=== PATIENT | female | born 1965 | race African-American/Black ===

== ENCOUNTER → 2017-02-01 | Outpatient (CLI) | payer OTHER ==
[~2017-02-01] MED LIST: ACETAMINOPHEN325 M1 PO; AMBIEN 5 MG TABL5 M1 PO; IBUPROFEN 600600 M1 PO; IMITREX 50 MG T50 MG PO; PROVENTIL HFA6.7 G1 INH; SIMETHICON CHEW80 MG PO; SINGULAIR 10 MG10 M1 PO; TOPIRAGEN200 MG PO; ULTRAM 50MG TAB50 MG PO; ZYRTEC 10 MG TA10 MG PO
== END ==
LOC: ULTRA 10:13
DX: N63 Unspecified lump in breast (principal)

== ENCOUNTER → 2017-07-25 | Outpatient (CLI) | payer OTHER | LOC: RAD 11:42 | DX: Z12.31 Encounter for screening mammogram for malignant neoplasm of breast (principal) ==

== ENCOUNTER → 2019-08-10 | Outpatient (CLI) | payer OTHER | LOC: RAD 12:12 | DX: Z12.31 Encounter for screening mammogram for malignant neoplasm of breast (principal) ==

== ENCOUNTER → 2019-09-28 | Outpatient (CLI) | payer OTHER | LOC: RAD 14:49 | DX: M41.86 Other forms of scoliosis, lumbar region (principal); I10 Essential (primary) hypertension; G43.909 Migraine, unspecified, not intractable, without status migrainosus; E55.9 Vitamin D deficiency, unspecified; Z98.890 Other specified postprocedural states ==

== ENCOUNTER 2020-03-05 11:44 | Emergency (ER) | payer OTHER ==
[~2020-03-05] VITALS: Ht 162.6 cm; Wt 85.3 kg
[2020-03-05 12:23] LABS: BASOPHILS 0.2 % (0.0-2.0); EOSINOPHILS 0.3 % (0.0-3.0); HEMATOCRIT 35.6 % (37.0-47.0); HEMOGLOBIN 11.3 gm/dL (12.0-15.0); LYMPHOCYTES 10.7 % (24.0-44.0); MCH 22.6 pg (26.0-34.0); MCHC 31.8 g/dL (28.0-37.0); MCV 71.1 fL (80.0-100.0); MONOCYTES 6.2 % (1.0-8.0); PLATELET COUNT 407 thou/uL (150-400); POLYS 82.6 % (36.0-66.0); RBC 5.01 mil/uL (4.20-5.00); RDW 19.2 % (10.5-14.5); WBC 9.7 thou/uL (4.0-11.0)
[2020-03-05] MEDS ORDERED: NORTRIPTYLINE H10 M1 PO (12:28)
[2020-03-05] MEDS ORDERED: HYDROCHLOROTHIA25 M2 PO (12:30)
[2020-03-05 12:31] LABS: ANION GAP 10 mmol/L (7-16); BUN 6 mg/dL (7-18); CALCIUM 9.3 mg/dL (8.5-10.1); CHLORIDE 99 mmol/L (98-107); CO2 25 mmol/L (21-32); CREATININE 0.9 mg/dL (0.6-1.0); GLUCOSE 97 mg/dL (74-106); POTASSIUM 4.1 mmol/L (3.5-5.1); SODIUM 134 mmol/L (136-145)
[2020-03-05 12:41] LABS: ALBUMIN 3.7 g/dL (3.4-5.0); SGOT 87 U/L (15-37); SGPT 74 U/L (30-65); TOTAL BILIRUBIN 0.4 mg/dL (<0.1-1.0); TOTAL PROTEIN 8.2 g/dL (6.4-8.2); TROPONIN-I <0.06 ng/mL (<0.06)
[2020-03-05 12:50] LABS: ANISOCYTOSIS 1+; MICROCYTES 2+; PLATELET ESTIMATE NORMAL
[2020-03-05] MEDS ORDERED: OMEPRAZOLE40 MG PO (14:58)
[2020-03-05] MEDS ORDERED: NORCO 5-325 TA1 EAC1 PO (14:58)
[2020-03-05 15:44] LABS: URINE BILIRUBIN NEGATIVE (Negative); URINE BLOOD TRACE (Negative); URINE CLARITY CLEAR; URINE COLOR YELLOW; URINE GLUCOSE-RANDOM* NEGATIVE (Negative); URINE KETONES NEGATIVE (Negative); URINE LEUKOCYTES-REFLEX NEGATIVE (Negative); URINE NITRITE-REFLEX NEGATIVE (Negative); URINE PROTEIN (DIPSTICK) NEGATIVE (Negative); URINE SPECIFIC GRAVITY 1.015 (1.005-1.035); URINE UROBILINOGEN 0.2 E.U./dl (0.2-1.0)
[2020-03-05 15:55] VITALS: BP 143/88
--- NOTE | 2020-03-06 08:01 | EKG ---
[facility] [place] [address] ELECTROCARDIOGRAM REPORT Name: NEHA MULLENKIRILL HARDING Room #: DEP [facility]#: [id number] Admission: 03/05/20 Attend Phys: Discharge: 03/05/20 Date of : 65 Report #: [id number] THIS REPORT FOR: cc: Tamara Fabian DNP, Mary E. DNP Lundgren, Craig H. MD 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: megan : 1965 Requested By: Ines Evans Order Number: [id number] MD: Chaparro Herron Measurements Intervals [place] Rate: 95 P: 35 AK: 140 QRS: 11 QRSD: 89 T: -1 QT: 347 QTc: 436 Interpretive Statements Sinus rhythm Abnormal R-wave progression, early transition Nonspecific T wave abnormality No previous ECG available for comparison Electronically Signed On 03-06-2020 7:59:12 CDT by Chaparro Herron [email or web address] <ELECTRONICALLY SIGNED> By: Chaparro Herron MD, FACC 03/06/20 0759 1214 1214 Chaparro Herron MD, [facility] /EPI
== END 2020-03-05 16:28 | disposition home or self-care (01) ==
LOC: ER 11:44
PROVIDERS: Physician Assistant
DX: K80.20 Calculus of gallbladder without cholecystitis without obstruction (principal); K80.50 Calculus of bile duct without cholangitis or cholecystitis without obstruction; I10 Essential (primary) hypertension; J45.909 Unspecified asthma, uncomplicated; Z98.84 Bariatric surgery status; G43.909 Migraine, unspecified, not intractable, without status migrainosus; Z79.899 Other long term (current) drug therapy

== ENCOUNTER → 2020-04-01 | Outpatient (CLI) | payer OTHER ==
[~2020-04-01] VITALS: Ht 162.6 cm; Wt 84.8 kg
[~2020-04-01] MED LIST changes: +ESTRADIOL1 EAC5; +HYDROCHLOROTH12.5 M1 PO; +HYDROCHLOROTHIA25 M2 PO; +LOSARTAN POTASS50 MG PO; +LOSARTAN-HCTZ1 EACH PO; +NORCO 5-325 TA1 EAC1 PO; +NORTRIPTYLINE H10 M1 PO; +OMEPRAZOLE40 MG PO; +SUMATRIPTAN SUC50 MG PO; +ZOLPIDEM TARTRA10 MG PO
== END | disposition home or self-care (01) ==
LOC: LAB 08:00 → OR 04-02 06:58 → EDSTATUS 04-02 13:01 → OR 04-02 16:23
PROVIDERS: ATTEND Surgery
DX: Z01.812 Encounter for preprocedural laboratory examination (principal); Z20.828 Contact with and (suspected) exposure to other viral communicable diseases; R10.9 Unspecified abdominal pain; K80.10 Calculus of gallbladder with chronic cholecystitis without obstruction; I10 Essential (primary) hypertension; J45.909 Unspecified asthma, uncomplicated; G43.909 Migraine, unspecified, not intractable, without status migrainosus; K21.9 Gastro-esophageal reflux disease without esophagitis; D64.9 Anemia, unspecified; Z98.890 Other specified postprocedural states; Z79.899 Other long term (current) drug therapy

== ENCOUNTER 2020-06-25 13:02 | Inpatient (IN) | payer OTHER ==
[~2020-06-25] VITALS: Ht 162.6 cm; Wt 75.3 kg
[2020-06-25 13:03] VITALS: BP 174/111
[2020-06-25 13:43] LABS: MCH 23.7 pg (26.0-34.0); MCHC 32.6 g/dL (28.0-37.0); MCV 72.6 fL (80.0-100.0); PLATELET COUNT 558 thou/uL (150-400); RBC 5.92 mil/uL (4.20-5.00); WBC 7.7 thou/uL (4.0-11.0)
[2020-06-25 13:50] LABS: CALCIUM 9.7 mg/dL (8.5-10.1); CREATININE 0.8 mg/dL (0.6-1.0); POTASSIUM 3.1 mmol/L (3.5-5.1)
[2020-06-25 13:52] LABS: URINE BLOOD TRACE (Negative); URINE CLARITY CLEAR; URINE COLOR YELLOW; URINE GLUCOSE-RANDOM* NEGATIVE (Negative); URINE KETONES 2+ (Negative); URINE LEUKOCYTES-REFLEX NEGATIVE (Negative); URINE NITRITE-REFLEX NEGATIVE (Negative); URINE PROTEIN (DIPSTICK) TRACE (Negative); URINE SPECIFIC GRAVITY >= 1.030 (1.005-1.035); URINE UROBILINOGEN 0.2 E.U./dl (0.2-1.0)
[2020-06-25 13:56] LABS: ALBUMIN 3.8 g/dL (3.4-5.0); TOTAL BILIRUBIN 0.6 mg/dL (0.2-1.0); TOTAL PROTEIN 8.8 g/dL (6.4-8.2)
[2020-06-25 14:00] LABS: ICTOTEST (BILI CONFIRMATORY) Negative (Negative); URINE BILIRUBIN NEGATIVE (Negative)
[2020-06-25 14:36] LABS: ABSOLUTE NEUTROPHILS 4.9 thou/uL (1.4-8.2)
[2020-06-25 14:37] LABS: HYPOCHROMASIA SLIGHT; LARGE PLATELETS OCCASIONAL; MICROCYTES 1+; OVALOCYTES FEW
[2020-06-25 14:38] LABS: ANISOCYTOSIS 1+
[2020-06-25] MEDS ORDERED: DICYCLOMINE HCL10 MG PO (15:01)
[2020-06-25] MEDS ORDERED: HYDROCHLOROTHIA25 M2 PO (15:02)
[2020-06-25] MEDS ORDERED: PROTONIX40 M2 PO (15:04)
[2020-06-25] MEDS ORDERED: PHENERGAN 25 MG25 MG PO (15:04)
[2020-06-25] MEDS ORDERED: ONDANSETRON HCL4 M2 PO (15:05)
[2020-06-25] MEDS ORDERED: METHYLPREDNISOL32 MG PO (15:06)
[2020-06-25] MEDS ORDERED: TRANSDERM-SCOP1 EACH TOP (15:07)
[2020-06-25 17:03] VITALS: BP 170/96
[2020-06-25] MEDS ORDERED: DIAZEPAM 5 MG5 M1 PO (18:11)
[2020-06-25 20:50] VITALS: BP 119/85
--- NOTE | 2020-06-25 22:01 | NUR ---
PATIENT ADMITTED FROM ER WITH ACUTE PANCREATITIS, PATIENT ALERT AND ORIENTED X 4. PATIENT UP AD FILIPE. PATIENT C/O PAIN WITH CHEST AREA NON-CARDIAC, ALSO LEFT BREAST AREA RADIATING FROM CHEST AREA. 04/25, SHE RECEIVED MORPHINE IV LAST IN ER AT 1630. ADMISSION COMPLETED AND REPORT GIVEN TO MARILYN/LB.
--- NOTE | 2020-06-26 03:31 | NUR ---
PT C/O EPIGASTRIC PAIN,MANAGED WITH MED.PT UP ADLIB IN HER ROOM.PT REQUESTED FOR AND RECEIVED AMBIEN FOR SLEEP.IVF INFUSING ORDERED.PT SLEEPING ON HER BED AT THIS TIME.CALL LIGHT WITHIN REACH.
[2020-06-26 03:41] VITALS: BP 99/68
[2020-06-26 05:59] LABS: HEMATOCRIT 34.9 % (37.0-47.0); MCH 23.4 pg (26.0-34.0); MCHC 32.3 g/dL (28.0-37.0); MCV 72.6 fL (80.0-100.0); RDW 18.1 % (10.5-14.5); WBC 7.5 thou/uL (4.0-11.0)
[2020-06-26 06:22] LABS: HEMOGLOBIN 11.2 gm/dL (12.0-15.0); PLATELET COUNT 422 thou/uL (150-400)
[2020-06-26 06:42] LABS: CALCIUM 8.7 mg/dL (8.5-10.1); CREATININE 0.8 mg/dL (0.6-1.0)
[2020-06-26 06:46] LABS: POTASSIUM 2.5 mmol/L (3.5-5.1)
[2020-06-26 07:30] VITALS: BP 115/84
--- NOTE | 2020-06-26 09:08 | NUR ---
ASSESSMENT: CM REVIEWED CHART AND MET WITH PATIENT. PT IS ALERT AND ORIENTED X4. PT IS HERE DUE TO PANCREATITIS. PT JUST RECENTLY HAD LAP PRAVEEN AT [facility] ON 06/03. PT REPORTS SHE LIVES IN A HOUSE WITH HER FAMILY. PT REPORTS ABOUT 4 STEPS WITH HANDRAILS TO ENTER AND ABOUT 12 STEPS WITH HANDRAILS TO GET INSIDE. PT REPORTS SHE IS FULLY INDEPENDENT WITH ADLS AND AMBULATION. PT REPORTS SHE HAS NOT HAD HH IN THE PAST OR BEEN TO A SNF. CM WILL CONTINUE TO FOLLOW TO ASSIST NEEDED.
[2020-06-26 09:28] LABS: ABSOLUTE NEUTROPHILS 2.7 thou/uL (1.4-8.2); METAMYELOCYTES 1 %
[2020-06-26 09:29] LABS: ANISOCYTOSIS 2+; HYPOCHROMASIA 1+; MICROCYTES 1+; OVALOCYTES 1+
--- NOTE | 2020-06-26 10:43 | NUR ---
PATIENT BACK FROM TEST X-RAY WITH BARRIUM. PT REQUEST FOR ZOFRAN AND MORPHINE IV PUSH. DR VALDIVIA HERE TO SEE PATIENT. PT HAS LABS THAT ARE LOW PT GIVEN KCL PO AND IV AND MAGNESIUM.
[2020-06-26 10:48] LABS: % SATURATION 17 % (20-39); IRON 52 ug/dL (50-170); TIBC 309 ug/dL (250-450)
[2020-06-26 16:11] VITALS: BP 118/97
[2020-06-26 20:18] VITALS: BP 144/94
--- NOTE | 2020-06-27 02:15 | NUR ---
PT C/O PAIN THIS SHIFT BUT SHE REFUSED TO TAKE HER HYDROCODONE THAT WAS PRESCIBED FOR HER.PTSTATED THAT THE MEDICATION MAKES HER SICK.PT ALSO STATED THAT THE AM NURSE TOLD HER THAT SHE WILL GET AN ORDER FOR OXYCODONE.PER REPORT,AMNURSE STATED THAT PT WAS DOING WELL ON HYDROCODONE.PT CALLED HER FAMILY AND COMPLAINED ABOUT HER MEDICATION.PT'S FAMILY CALLED AND WAS NOT HAPPY ON THE PHONE THEY WERE YELLING AT THIS NURSE STATING THAT PT'S PAIN IS NOT BEING CONTROLLED.THIS NURSE INFORMED THEM THAT SHE WAS DOING EVERYTHING TO HELP RESTART PT'S MED.[employer] WAS NOTIFIED THAT PT TAKE OXYCODONE AT HOMEAND WOULD WANT IT RESTARTED.MEDICATION WAS RESTARTED WHEN PT WAS ABLE TO BRING THE PRESCRIPTION VIA PHONE.PT HAD AN EPISODE OF N/V.PT SLEEPING AT THIS TIME.CALL LIGHT WITHIN REACH.
[2020-06-27 03:53] VITALS: BP 99/70
[2020-06-27 04:51] LABS: HEMATOCRIT 34.3 % (37.0-47.0); HEMOGLOBIN 11.1 gm/dL (12.0-15.0); MCH 23.5 pg (26.0-34.0); MCHC 32.3 g/dL (28.0-37.0); MCV 72.6 fL (80.0-100.0); RBC 4.73 mil/uL (4.20-5.00); RDW 18.3 % (10.5-14.5); WBC 7.6 thou/uL (4.0-11.0)
[2020-06-27 04:59] LABS: ALBUMIN 2.9 g/dL (3.4-5.0); CALCIUM 8.8 mg/dL (8.5-10.1); CREATININE 0.8 mg/dL (0.6-1.0); MAGNESIUM 2.4 mg/dL (1.8-2.4); PHOSPHORUS 3.1 mg/dL (2.5-4.9); TOTAL BILIRUBIN 0.5 mg/dL (0.2-1.0); TOTAL PROTEIN 6.7 g/dL (6.4-8.2)
[2020-06-27 05:20] LABS: POTASSIUM 2.9 mmol/L (3.5-5.1)
[2020-06-27 07:52] VITALS: BP 112/76
--- NOTE | 2020-06-27 13:38 | NUR ---
discussed with hospitalist this am with have test today mri possible ercp, if negative can dc. dcp: home no needs.
[2020-06-27 16:13] VITALS: BP 99/63
--- NOTE | 2020-06-28 04:51 | NUR ---
ASSUMED CARE OF PT AT 1900. PT IS A/O X4. UP AD FILIPE AND ABLE TO MAKE NEEDS KNOWN. C/O PAIN, NAUSEA, AND INSOMNIA. PRN PAIN, NAUSEA, AND SLEEP MEDICATION GIVEN DIRECTED. PT IS CURRENTLY LYING IN HER BED AND APPEARS TO BE SLEEPING. WILL CONTINUE TO MONITOR.
[2020-06-28 07:59] VITALS: BP 94/62
[2020-06-28 12:06] LABS: ABSOLUTE NEUTROPHILS 3.3 thou/uL (1.4-8.2); BASOPHILS 0.7 % (0.0-2.0); EOSINOPHILS 2.1 % (0.0-3.0); HEMATOCRIT 34.3 % (37.0-47.0); HEMOGLOBIN 11.1 gm/dL (12.0-15.0); LYMPHOCYTES 33.6 % (24.0-44.0); MCHC 32.4 g/dL (28.0-37.0); MCV 73.9 fL (80.0-100.0); MONOCYTES 10.3 % (1.0-8.0); PLATELET COUNT 308 thou/uL (150-400); POLYS 53.3 % (36.0-66.0); RBC 4.64 mil/uL (4.20-5.00); RDW 18.3 % (10.5-14.5); WBC 6.1 thou/uL (4.0-11.0)
[2020-06-28 12:31] LABS: CALCIUM 9.1 mg/dL (8.5-10.1); CREATININE 0.8 mg/dL (0.6-1.0); MAGNESIUM 2.3 mg/dL (1.8-2.4); POTASSIUM 3.7 mmol/L (3.5-5.1); TOTAL BILIRUBIN 0.5 mg/dL (0.2-1.0); TOTAL PROTEIN 6.5 g/dL (6.4-8.2)
[2020-06-28 13:02] LABS: ANISOCYTOSIS 2+
[2020-06-28 13:04] LABS: MICROCYTES 1+; OVALOCYTES 1+
[2020-06-28 16:03] VITALS: BP 109/58
[2020-06-28] MEDS ORDERED: PANCREAZE DR 11 EAC2 PO (16:18)
[2020-06-28 16:36] VITALS: BP 109/58
--- NOTE | 2020-06-28 16:45 | NUR ---
DISCHARGE PAPERS REVIEWED WITH PATIENT SIGNED AND COPY IN CHART. IV ACSESS DCD.RX CALLED TO PHARMACY. ALL BELONGINGS PACKED AND SENT WITH PATIENT. [facility] HERE TO TRANSPORT HOME.
[2020-06-28 16:55] VITALS: BP 109/58
[2020-06-29] MEDS ORDERED: ALPRAZOLAM 0.0.25 M1 PO (04:32)
[2020-06-29] MEDS ORDERED: HYDROCODON-ACE118 ML PO (04:33)
[2020-06-29] MEDS ORDERED: METHYLPREDNISOLO4 MG PO (04:33)
[2020-06-29] MEDS ORDERED: METOCLOPRAMIDE10 MG PO (04:34)
[2020-06-29] MEDS ORDERED: NORTRIPTYLINE H25 M3 PO (04:35)
[2020-06-29] MEDS ORDERED: TRAMADOL 50 MG50 MG PO (04:35)
[2020-06-29] MEDS ORDERED: LOSARTAN POTASS50 MG PO (04:35)
[2020-06-29] MEDS ORDERED: ZOLPIDEM TARTRA10 MG PO (04:36)
[2020-06-29] MEDS ORDERED: VITAMIN D21250 MC1 PO (04:36)
[2020-06-29] MEDS ORDERED: SINGULAIR 10 MG10 M1 PO (04:36)
[2020-06-29] MEDS ORDERED: PHENERGAN50 MG RECTAL (06:55)
[2020-06-29] MEDS ORDERED: CARAFATE1 GM PO (06:55)
== END 2020-06-28 16:59 | disposition home or self-care (01) | DRG 440 ==
LOC: ER 13:02 → EROBS 16:58 → 4S 20:15
PROVIDERS: Emergency Medicine; Internal Medicine; Nurse Practitioner; ADMIT Internal Medicine; ATTEND Internal Medicine
DX: K85.90 Acute pancreatitis without necrosis or infection, unspecified (principal); K21.9 Gastro-esophageal reflux disease without esophagitis; I10 Essential (primary) hypertension; J45.909 Unspecified asthma, uncomplicated; F41.9 Anxiety disorder, unspecified; R13.10 Dysphagia, unspecified; G43.909 Migraine, unspecified, not intractable, without status migrainosus; D64.9 Anemia, unspecified; E87.6 Hypokalemia; E66.3 Overweight; Z68.28 Body mass index [BMI] 28.0-28.9, adult; Z90.710 Acquired absence of both cervix and uterus; Z98.84 Bariatric surgery status; Z79.899 Other long term (current) drug therapy; Z88.8 Allergy status to other drugs, medicaments and biological substances; Z90.49 Acquired absence of other specified parts of digestive tract
CPT/HCPCS: 10195

== ENCOUNTER 2020-06-30 16:48 | Emergency (ER) | payer OTHER ==
[~2020-06-30] VITALS: Ht 162.6 cm; Wt 75.3 kg
[~2020-06-30 16:48] MED LIST changes: +ALPRAZOLAM 0.0.25 M1 PO; +CARAFATE1 GM PO; +DIAZEPAM 5 MG5 M1 PO; +DICYCLOMINE HCL10 MG PO; +HYDROCODON-ACE118 ML PO; +METHYLPREDNISOL32 MG PO; +METHYLPREDNISOLO4 MG PO; +METOCLOPRAMIDE10 MG PO; +NORTRIPTYLINE H25 M3 PO; +ONDANSETRON HCL4 M2 PO; +PANCREAZE DR 11 EAC2 PO; +PHENERGAN 25 MG25 MG PO; +PHENERGAN50 MG RECTAL; +PROTONIX40 M2 PO; +TRAMADOL 50 MG50 MG PO; +TRANSDERM-SCOP1 EACH TOP; +VITAMIN D21250 MC1 PO
[2020-06-30 17:54] LABS: HEMATOCRIT 37.5 % (37.0-47.0); HEMOGLOBIN 11.8 gm/dL (12.0-15.0); MCH 23.2 pg (26.0-34.0); MCHC 31.4 g/dL (28.0-37.0); MCV 73.9 fL (80.0-100.0); PLATELET COUNT 332 thou/uL (150-400); RBC 5.07 mil/uL (4.20-5.00); RDW 18.5 % (10.5-14.5); WBC 11.5 thou/uL (4.0-11.0)
[2020-06-30 18:05] LABS: ANION GAP 18 mmol/L (7-16); BUN 6 mg/dL (7-18); CALCIUM 9.4 mg/dL (8.5-10.1); CHLORIDE 98 mmol/L (98-107); CO2 22 mmol/L (21-32); CREATININE 0.7 mg/dL (0.6-1.0); GLUCOSE 79 mg/dL (74-106); POTASSIUM 3.5 mmol/L (3.5-5.1); SODIUM 138 mmol/L (136-145)
[2020-06-30 18:15] LABS: ALBUMIN 3.6 g/dL (3.4-5.0); LIPASE 626 U/L (73-393); SGOT 21 U/L (15-37); SGPT 31 U/L (30-65); TOTAL BILIRUBIN 0.6 mg/dL (0.2-1.0); TOTAL PROTEIN 7.9 g/dL (6.4-8.2); TROPONIN-I <0.06 ng/mL (<0.06)
[2020-06-30 18:49] LABS: URINE BILIRUBIN NEGATIVE (Negative); URINE BLOOD 1+ (Negative); URINE CLARITY CLEAR; URINE COLOR YELLOW; URINE GLUCOSE-RANDOM* NEGATIVE (Negative); URINE KETONES 3+ (Negative); URINE LEUKOCYTES-REFLEX NEGATIVE (Negative); URINE NITRITE-REFLEX NEGATIVE (Negative); URINE PROTEIN (DIPSTICK) NEGATIVE (Negative); URINE SPECIFIC GRAVITY 1.025 (1.005-1.035); URINE UROBILINOGEN 0.2 E.U./dl (0.2-1.0)
[2020-06-30 18:56] LABS: HYALINE CASTS 0-3 Few /LPF (None Seen); SQUAMOUS >10 Many /LPF (0-3)
[2020-06-30 18:57] LABS: CRYSTALS None Seen /LPF (None Seen)
[2020-06-30 18:58] LABS: URINE RBC 0-2 Rare /HPF (0-2); URINE WBC-REFLEX 0-5 Rare /HPF (0-5)
[2020-06-30 19:35] LABS: ABSOLUTE NEUTROPHILS 10.2 thou/uL (1.4-8.2); ANISOCYTOSIS 2+; HYPOCHROMASIA 1+; MICROCYTES 1+
[2020-06-30 19:36] LABS: OVALOCYTES 1+; SCHISTOCYTES RARE
[2020-06-30 21:37] VITALS: BP 101/66
--- NOTE | 2020-07-01 08:18 | EKG ---
[facility] [place] [address] ELECTROCARDIOGRAM REPORT Name: SARAH MULLEN Room #: [facility]P [id number] Admission: 06/30/20 Attend Phys: Discharge: 06/30/20 Date of : 65 Report #: [id number] THIS REPORT FOR: cc: Tamara Fabian DNP, Mary E. DNP Couchonnal, Luis F. 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[employer] : 1965 Requested By: Sunny Grant Order Number: [id number] MD: Samir Gamboa Measurements Intervals [place] Rate: 89 P: 34 AR: 137 QRS: 22 QRSD: 85 T: 4 QT: 364 QTc: 443 Interpretive Statements Sinus rhythm Probable left atrial enlargement Probable left ventricular hypertrophy Compared to ECG 06/29/2020 04:46:09 T-wave abnormality no longer present Electronically Signed On 07-01-2020 8:18:30 CDT by Samir Gamboa [email or web address] <ELECTRONICALLY SIGNED> By: Samir Gamboa MD 07/01/2018 00 00 Samir Gamboa MD /EPI
== END 2020-06-30 22:03 | disposition home or self-care (01) ==
LOC: ER 16:48
PROVIDERS: Emergency Medicine
DX: E86.0 Dehydration (principal); I10 Essential (primary) hypertension; J45.909 Unspecified asthma, uncomplicated; G43.909 Migraine, unspecified, not intractable, without status migrainosus; K21.9 Gastro-esophageal reflux disease without esophagitis; Z90.710 Acquired absence of both cervix and uterus; Z86.2 Personal history of diseases of the blood and blood-forming organs and certain disorders involving the immune mechanism; Z79.899 Other long term (current) drug therapy; Z88.8 Allergy status to other drugs, medicaments and biological substances